=== PATIENT | male | born 1960 | race Caucasian/White ===

== ENCOUNTER → 2024-06-12 | Day surgery (SDC) | payer BC ==
[~2024-06-12] MED LIST: FENTANYL CITRATE/PF 100MCG/2 ML INJ ONE; FLOMAX0.4 MG PO; GLYCOPYRROLATE INJ 0.2 MG/ML VIAL ONE; KETAMINE HCL INJ 50 MG/ML 10 ML VIAL ONE; LIDOCAINE HCL 2% LOCAL INJ 5 ML SDV VIAL INJ ONE; PROPOFOL IV EMULSION 10 MG/ML 20 ML VIAL ONE; PROPOFOL IV EMULSION 50 ML IV ONE; SYMTUZA 800-151 EACH PO
[2024-06-12] MEDS: LACTATED RINGER'S 1,000 ML ONE (11:14)
[2024-06-12 14:58] VITALS: TEMP 97.3
[2024-06-12 15:25] VITALS: BP 169/91; PULSE 78; RESP 16; O2SAT 96
== END | disposition home or self-care (01) ==
LOC: OR 05:00
PROVIDERS: ATTEND Internal Medicine Gastroenterology
DX: Z12.11 Encounter for screening for malignant neoplasm of colon (principal); D12.2 Benign neoplasm of ascending colon; K29.50 Unspecified chronic gastritis without bleeding; B96.81 Helicobacter pylori [H. pylori] as the cause of diseases classified elsewhere; K44.9 Diaphragmatic hernia without obstruction or gangrene; K62.5 Hemorrhage of anus and rectum; K62.89 Other specified diseases of anus and rectum; K21.9 Gastro-esophageal reflux disease without esophagitis; K64.1 Second degree hemorrhoids; Z21 Asymptomatic human immunodeficiency virus [HIV] infection status; G47.33 Obstructive sleep apnea (adult) (pediatric); I10 Essential (primary) hypertension; E66.9 Obesity, unspecified; Z88.2 Allergy status to sulfonamides; Z79.899 Other long term (current) drug therapy; Z68.39 Body mass index [BMI] 39.0-39.9, adult; Z86.69 Personal history of other diseases of the nervous system and sense organs; Z80.0 Family history of malignant neoplasm of digestive organs
CPT/HCPCS: 43239; 45380; 45384; 93005; J2003; J2704 ×2; J3010; J7121